=== PATIENT | female | born 1955 | race Two or more races ===

== ENCOUNTER 2016-05-15 19:09 | Emergency (ER) | payer OTHER ==
[~2016-05-15] VITALS: Ht 162.6 cm; Wt 77.1 kg
[2016-05-15 20:23] VITALS: BP 143/68
--- NOTE | 2016-05-15 22:01 | Emergency Room Report ---
History of Present Illness General Chief Complaint: Malfunctioning Gastric Tube Source: Medical Record Present Illness HPI 60-year-old female presents ED for G-tube placement. Per EMS G-tube came out at [facility] today. Nursing staff placed a Pool catheter in place. Upon arrival patient showing no signs of distress. No reported nausea or vomiting. Patient has history of CVA, trach. Unable to provide any additional history at this time. No reported abdominal pain. No other aggravating relieving factors. No other associated symptoms Allergies: Coded Allergies: No Known Allergies (Unverified , 05/15/16) Patient History Past Medical History: DM, HTN, CVA/TIA Past Surgical History: none Pertinent Family History: none Social History: Denies: alcohol use, drug use, smoking Now: No Immunizations: UTD Reviewed Nursing Documentation: PMH: Agreed, PSxH: Agreed Nursing Documentation-PMH Hx Hypertension: Yes Hx Diabetes: Yes Hx Gastrointestinal Problems: Yes Hx Cerebrovascular Accident: Yes Review of Systems All Other Systems: negative except mentioned in HPI Physical Exam Vital Signs Date Time Temp Pulse Resp B/P Pulse Ox O2 Delivery O2 Flow Rate FiO2 05/15/16 19:14 98.1 81 20 143/68 97 Trach Collar 3.0 Sp02 EP Interpretation: reviewed, normal General Appearance: no apparent distress, alert, GCS 15, non-toxic Head: normocephalic Eyes: bilateral eye PERRL, bilateral eye normal inspection ENT: normal ENT inspection Neck: tracheotomy Respiratory: chest non-tender, lungs clear, normal breath sounds, speaking full sentences Cardiovascular #1: regular rate, rhythm, no edema Gastrointestinal: normal bowel sounds, non tender, soft, non-distended, no guarding, no rebound, other - Gtube site C/D/I Rectal: deferred Genitourinary: no CVA tenderness Musculoskeletal: normal inspection Neurologic: other - dementia Psychiatric: other - dementia Skin: normal inspection Lymphatic: normal inspection Procedures Additional Procedure Procedure Narrative G-tube placement Patient placed on stretcher. Old G-tube is removed by deflating the balloon using syringe. G-tube site is inspected with no contraindications to G-tube placement. G-tube slowly inserted until resistance is met; G-tube balloon is slowly filled with 20 mL of normal saline and slowly retracted back until resistance is met. G-tube placement is confirmed with KUB study using Gastrografin Medical Decision Making Diagnostic Impression: Primary Impression: Malfunction of gastrostomy tube ER Course Hospital Course 60-year-old female presents to ED for G-tube placement. Pulled out G-tube at [facility] Clinical course Patient placed on stretcher. After initial history and physical I replaced G- tube and inflate the balloon. G-tube placement confirmed with KUB study. Patient remained stable without any signs of distress. [facility] called and patient subsequently discharged back to facility. Diagnosis - malfunction of G tube stable and discharged back to facility. Followup with PMD. Return to ED if symptoms recur or worsen Other X-Ray Diagnostic Results Other X-Ray Diagnostic Results : X-Ray Ordered: KUB EP Interpretation: Yes Findings: no fractures, no dislocation, no soft tissue swelling, other - Gtube in place. no extravasation Number of Views: 1 Last Vital Signs Date Time Temp Pulse Resp B/P Pulse Ox O2 Delivery O2 Flow Rate FiO2 05/15/16 20:23 98.1 20 143/68 97 Trach Collar 3.0 05/15/16 19:14 81 Status: improved Disposition: XFER SNF Condition: Stable Referrals: LA CAMERON (PCP) Patient Instructions: Gastrostomy Tube Home Guide, Adult HESHAM ORTEGA M.D. May 15, 2016 22:01
--- NOTE | 2016-05-16 10:51 | Diagnostic Imaging Report ---
Indication: Post gastrostomy replacement Technique: Supine view of the abdomen after injection of water-soluble contrast into gastrostomy Comparison: none Findings: Contrast opacifies the stomach. No contrast extravasation is demonstrated. The bowel gas pattern is unremarkable. There are cholecystectomy clips Impression: Satisfactory position of gastrostomy tube This agrees with the preliminary interpretation provided overnight by [facility]eradiology service.
== END 2016-05-15 20:26 ==
LOC: EDBD 19:09 → EMR 19:24
DX: K94.23 Gastrostomy malfunction (principal); Z86.73 Personal history of transient ischemic attack (TIA), and cerebral infarction without residual deficits; E11.9 Type 2 diabetes mellitus without complications; I10 Essential (primary) hypertension
CPT/HCPCS: 74000

== ENCOUNTER 2016-05-22 16:27 | Emergency (ER) | payer OTHER ==
[~2016-05-22] VITALS: Ht 152.4 cm; Wt 95.3 kg
--- NOTE | 2016-05-22 16:55 | Emergency Room Report ---
History of Present Illness General Chief Complaint: Malfunctioning Gastric Tube Source: Medical Record, EMS Present Illness HPI Patient presents from nursing facility There was a report patient pulled out her feeding tube The timing of this is unclear however the patient is sent in with the feeding tube that was pulled out the patient herself is chronically debilitated has tracheostomy however is non-vent dependent Patient is nonverbal history of present illness is limited secondary to the patient's mental status No reports of any other trauma or fevers Allergies: Coded Allergies: No Known Allergies (Unverified , 05/15/16) Patient History Limited by: medical condition Past Medical History: see triage record Pertinent Family History: none Reviewed Nursing Documentation: PMH: Agreed, PSxH: Agreed Nursing Documentation-PMH Hx Hypertension: Yes Hx Diabetes: Yes Hx Gastrointestinal Problems: Yes Hx Cerebrovascular Accident: Yes Review of Systems All Other Systems: limited - Other than the ones mentioned in the history of present illness all others are reviewed however they do stay limited due to the patient's mental status Physical Exam Vital Signs Date Time Temp Pulse Resp B/P Pulse Ox O2 Delivery O2 Flow Rate FiO2 05/22/16 16:18 73 28 149/56 100 Trach Collar 3.0 Sp02 EP Interpretation: reviewed, normal General Appearance: no apparent distress Head: normocephalic, atraumatic Eyes: bilateral eye PERRL ENT: other - tracheostomy in place Neck: supple Respiratory: lungs clear Cardiovascular #1: regular rate, rhythm Gastrointestinal: other - Soft abdomen, stoma is open very mild erythema around the edge Musculoskeletal: other - Patient has covers over both hands, no obvious focal upper extremity weakness Neurologic: other - Patient has eyes closed responds minimally to physical stimuli Lymphatic: no adenopathy Medical Decision Making Diagnostic Impression: Primary Impression: Malfunction of gastrostomy tube Additional Impression: Encounter for feeding tube placement ER Course The abdominal stoma was cleansed and prepped 18 [place] feeding tube was placed through the stoma without any resistance 20 mL injected for balloon inflation And the patient tolerated procedure well KUb Gastrografin confirms placement patient remained otherwise hemodynamically stable and appropriate for returns nursing facility Other X-Ray Diagnostic Results Other X-Ray Diagnostic Results : EP Interpretation: Yes Findings: no fractures, no dislocation, no soft tissue swelling, other - No signs of any extravasation, contrast appears to be intraluminal Number of Views: 1 - KUB Last Vital Signs Date Time Temp Pulse Resp B/P Pulse Ox O2 Delivery O2 Flow Rate FiO2 05/22/16 16:18 73 28 149/56 100 Trach Collar 3.0 Status: improved Disposition: XFER SNF Condition: Improved Additional Instructions: Patient discharged back to nursing facility will return with any changes in status HERNANDEZ CAIN D.O. May 22, 2016 16:55
[2016-05-22 19:03] VITALS: BP 146/82
--- NOTE | 2016-05-23 09:52 | Diagnostic Imaging Report ---
Indications: Percutaneous gastrostomy tube replacement Technique: Portable AP view of the abdomen with administration of water soluble contrast through gastrostomy tube Findings: Comparison: 05/15/2016 Image degraded by motion. Percutaneous gastrostomy tube is present in the stomach. Injected contrast opacifies lumens of the tube, stomach both proximal and distal to the tube, and proximal small bowel. All are normal in caliber. No extraluminal contrast extravasation is demonstrated. Abdomen and pelvis incompletely imaged. Visualized portions of bowel gas pattern unremarkable. Degenerative changes are present in the lumbar spine. IMPRESSION: Percutaneous gastrostomy tube in stomach. No evidence of obstruction or extravasation. No other evidence of acute abdominopelvic disease, with limitation as described. Chronic changes as described.
== END 2016-05-22 18:30 ==
LOC: EDBD 16:27 → EMR 17:00
DX: K94.23 Gastrostomy malfunction (principal); Y83.3 Surgical operation with formation of external stoma as the cause of abnormal reaction of the patient, or of later complication, without mention of misadventure at the time of the procedure; Y92.129 Unspecified place in nursing home as the place of occurrence of the external cause; I10 Essential (primary) hypertension; E11.9 Type 2 diabetes mellitus without complications; Z86.73 Personal history of transient ischemic attack (TIA), and cerebral infarction without residual deficits
CPT/HCPCS: 74000